=== PATIENT | male | born 2000 | race Caucasian/White ===

== ENCOUNTER 2022-12-06 11:29 | Inpatient (IN) | payer OTHER ==
[2022-12-06] MEDS ORDERED: Iopamidol 300 61% 100 ML VIAL FS ONE (13:16)
[2022-12-06] MEDS ORDERED: Ketorolac Tromethamine 30 MG/ML VIAL ONE (14:04)
[2022-12-06] MEDS ORDERED: Famotidine/PF 20 mg/2ml Vial ONE (14:04)
[2022-12-06] MEDS ORDERED: Ondansetron PF 4 MG/2 ML Vial ONE (14:04)
[2022-12-06 14:16] LABS: #Basophils 0.1 10x3/uL (0.0-0.2); #Eosinphils 0.1 10x3/uL (0.0-0.5); #Monocytes 0.7 10x3/uL (0.0-1.1); #Neutrophils 7.5 10x3/uL (1.5-8.4); %Basophils 0.7 % (0.0-2.0); %Eosinophils 0.8 % (0.0-6.0); %Lymphocytes 17.4 % (18.0-47.0); %Monocytes 6.5 % (0.0-10.0); %Neutrophils 74.2 % (40.0-75.0); Hematocrit 46.7 % (38.8-50.0); Hemoglobin 16.7 g/dL (13.5-17.5); Mean Corpuscular HGB CONC 35.8 g/dL (32.0-36.0); Mean Corpuscular Hemoglobin 29.8 pg (27.0-33.0); Mean Corpuscular Volume 83.2 fl (81.2-95.1); Mean Platelet Volume 12.9 fl (7.4-10.4); Platelet Count 273 10x3/uL (150-450); RBC Distribution Width 15.2 % (11.5-14.5); Red Blood Cell (RBC) Count 5.61 10x6/uL (4.32-5.72); White Blood Cell (WBC) Count 10.1 10x3/uL (3.5-10.5)
[2022-12-06 14:25] LABS: ALT (SGPT) 35 U/L (8-55); AST (SGOT) 20 U/L (5-34); Albumin 4.9 g/dL (3.5-5.0); Alkaline Phosphatase 78 U/L (40-110); Anion Gap 26 mmol/L (10-20); BUN (Urea Nitrogen) 6 mg/dL (8.9-20.6); CK (CPK) 111 U/L (30-200); Calc. Creatinine Clearance 0 mL/min (70-130); Calcium 9.8 mg/dL (7.8-10.44); Chloride 98 mmol/L (98-107); Estimated GFR 75; Globulin 4.2 g/dL (2.4-3.5); Lipase 19 U/L (8-78); Magnesium 2.1 mg/dL (1.6-2.6); Potassium 2.9 mmol/L (3.5-5.1); Protein, Total 9.1 g/dL (6.0-8.3); Sodium 130 mmol/L (136-145)
[2022-12-06 14:33] LABS: Carbon Dioxide 9 mmol/L (22-29); Glucose 505 mg/dL (70-105)
[2022-12-06 14:39] LABS: SARS-CoV-2 NAA Rapid Test DETECTED (NotDetected)
[2022-12-06] MEDS ORDERED: Potassium Chloride 20 MEQ/100 ML PREMIX BAG ONE (14:51)
[2022-12-06 15:25] LABS: Actual Bicarbonate (HCO3v) 9.9 mEq/L (22-28); Base Excess -17.4 mEq/L (-2 - +2); Calcium, Ionized (venous) 1.18 mmol/L (1.16-1.32); Chloride (VBG) 101 mmol/L (98-106); Hematocrit-VBG 49 % (42.0-52.0); Hemoglobin (Hb) 16.6 g/dL (13.2-17.3); Potassium (VBG) 3.08 mmol/L (3.70-5.30); Puncture Site Other Site; Sodium 136 mmol/L (133-146)
[2022-12-06 15:33] LABS: Phosphorus 2.5 mg/dL (2.3-4.7)
[2022-12-06] MEDS ORDERED: Potassium Chloride 20 MEQ TAB ONE (15:40)
[2022-12-06 15:56] LABS: Troponin I Less than 0.010 ng/mL (< 0.028)
[2022-12-06 16:04] LABS: Bilirubin Neg (Negative); Blood, Urine 25 (Negative); Glucose, Urine (Dipstick) >=1000 mg/dL (Negative); Ketone, Urine 150 mg/dL (Negative); Leukocyte Negative (Negative); Nitrite Negative (Negative); Protein, Urine (Dipstick) 30 mg/dl (Neg-Trace); Urobilinogen Normal mg/dL (Less than 2)
[2022-12-06 16:13] LABS: Bacteria/HPF None Seen HPF (None Seen); CAUTI Indications for Culture Dysuria,urgency,freq; Clarity Clear (Clear); RBC/HPF 0-3 HPF (0-3); Squamous Epithelial 0-3 HPF (0-3); WBC/HPF None Seen HPF (0-3)
[2022-12-06 16:14] LABS: Urine Culture Reflex No No
[2022-12-06] MEDS ORDERED: FLU VACC QS2023-24(6MOS UP)/PF 60 MCG/0.5 ML SYRINGE IM ONE (16:45)
[2022-12-06] MEDS ORDERED: Dextrose 50% Abboject 50 ML SYRINGE SLOW IVP PRN (17:13)
[2022-12-06] MEDS ORDERED: Ondansetron PF 4 MG/2 ML Vial IVP PRN (17:13)
[2022-12-06] MEDS ORDERED: Electrolyte Replacement Protocol 1 EACH IVPB SCH (17:13)
[2022-12-06] MEDS ORDERED: Ondansetron ODT 4 MG TAB PO PRN (17:13)
[2022-12-06] MEDS ORDERED: D5 1/2 NS w/20 mEq KCL 1,000 ML IV PRN (17:13)
[2022-12-06] MEDS ORDERED: Sodium Chloride 0.9% 1,000 ML IV PRN ×4 (17:13)
[2022-12-06] MEDS ORDERED: Dextrose 5 %-0.45 % NaCl 1,000 ML IV PRN (17:13)
[2022-12-06] MEDS ORDERED: NS 0.9% w/ 20 MEQ KCL 1,000 ML IV PRN (17:13)
[2022-12-06] MEDS ORDERED: Acetaminophen 325 MG TAB PO PRN (17:13)
[2022-12-06] MEDS ORDERED: hydrALAZINE 25 MG TAB PO PRN (17:17)
[2022-12-06 17:31] LABS: Anion Gap 23 mmol/L (10-20); BUN (Urea Nitrogen) 5 mg/dL (8.9-20.6); Calc. Creatinine Clearance 199 mL/min (70-130); Calcium 8.4 mg/dL (7.8-10.44); Carbon Dioxide 10 mmol/L (22-29); Chloride 106 mmol/L (98-107); Estimated GFR 96; Glucose 341 mg/dL (70-105); Potassium 2.9 mmol/L (3.5-5.1); Sodium 136 mmol/L (136-145)
[2022-12-06] MEDS ORDERED: Magnesium 2 GM/50 ML(in water) 2 GM in Premix Bag 1 BAG IVPB SCH (17:45)
[2022-12-06] MEDS: NS 0.9% w/ 20 MEQ KCL 1,000 ML IV PRN ×2 (17:52→19:57)
[2022-12-06] MEDS ORDERED: Potassium Phosphate 15 MMOL in Sodium Chloride 0.9% 250 ML 250 ML IVPB SCH (18:00)
[2022-12-06] MEDS: Potassium Chloride 20 MEQ in Premix Bag 1 BAG IVPB SCH ×2 (18:35→19:30)
[2022-12-06] MEDS ORDERED: Potassium Chloride 20 MEQ TAB PO SCH (19:00)
[2022-12-06 20:28] LABS: Anion Gap 22 mmol/L (10-20); BUN (Urea Nitrogen) 4 mg/dL (8.9-20.6); Calc. Creatinine Clearance 218 mL/min (70-130); Calcium 8.3 mg/dL (7.8-10.44); Chloride 107 mmol/L (98-107); Estimated GFR 107; Glucose 310 mg/dL (70-105); Potassium 3.3 mmol/L (3.5-5.1); Sodium 135 mmol/L (136-145)
[2022-12-06 20:34] LABS: Carbon Dioxide 9 mmol/L (22-29)
[2022-12-06] MEDS: Lactated Ringer's 1,000 ML IV SCH (20:54)
[2022-12-06] MEDS: INSULIN REGULAR IN 0.9 % NACL 100 UNITS in Premix Bag 1 BAG IVPB SCH (20:55)
[2022-12-06] MEDS ORDERED: Dextrose 5%-Lactated Ringers 1,000 ML IV SCH (21:00)
[2022-12-06 22:20] LABS: BUN (Urea Nitrogen) 4 mg/dL (8.9-20.6); Calc. Creatinine Clearance 232 mL/min (70-130); Calcium 8.1 mg/dL (7.8-10.44); Chloride 107 mmol/L (98-107); Estimated GFR 115; Glucose 286 mg/dL (70-105); Potassium 3.4 mmol/L (3.5-5.1); Sodium 134 mmol/L (136-145)
[2022-12-06 22:24] LABS: Carbon Dioxide Less than 8 mmol/L (22-29)
[2022-12-07 01:31] LABS: Actual Bicarbonate (HCO3v) 11.9 mEq/L (22-28); Anion Gap 16 mmol/L (10-20); BUN (Urea Nitrogen) Less than 4 mg/dL (8.9-20.6); Base Excess -11.7 mEq/L (-2 - +2); Calc. Creatinine Clearance 256 mL/min (70-130); Calcium 8.2 mg/dL (7.8-10.44); Calcium, Ionized (venous) 1.16 mmol/L (1.16-1.32); Carbon Dioxide 10 mmol/L (22-29); Chloride 112 mmol/L (98-107); Chloride (VBG) 110 mmol/L (98-106); Critical Notified By: CP.PH; Estimated GFR 125; Glucose 146 mg/dL (70-105); Hematocrit-VBG 41 % (42.0-52.0); Hemoglobin (Hb) 13.9 g/dL (13.2-17.3); Potassium 2.7 mmol/L (3.5-5.1); Potassium (VBG) 2.76 mmol/L (3.70-5.30); Puncture Site Other Site; Sodium 135 mmol/L (136-145); Sodium 136 mmol/L (133-146); pH (venous) 7.342 (7.32-7.43)
[2022-12-07] MEDS: Potassium Chloride 20 MEQ TAB PO SCH ×2 (01:33→04:08)
[2022-12-07] MEDS: D5 LR w/20 mEq KCL 1,000 ML IV SCH ×2 (02:12→06:59)
[2022-12-07] MEDS: INSULIN REGULAR IN 0.9 % NACL 100 UNITS in Premix Bag 1 BAG IVPB SCH (02:50)
[2022-12-07] MEDS: Lactated Ringer's 1,000 ML IV SCH (03:16)
[2022-12-07 04:41] LABS: #Basophils 0.1 10x3/uL (0.0-0.2); #Eosinphils 0.3 10x3/uL (0.0-0.5); #Monocytes 0.8 10x3/uL (0.0-1.1); #Neutrophils 4.1 10x3/uL (1.5-8.4); %Basophils 0.7 % (0.0-2.0); %Eosinophils 3.3 % (0.0-6.0); %Lymphocytes 31.3 % (18.0-47.0); %Neutrophils 53.6 % (40.0-75.0); Hematocrit 36.4 % (38.8-50.0); Mean Corpuscular HGB CONC 35.7 g/dL (32.0-36.0); Mean Corpuscular Hemoglobin 29.7 pg (27.0-33.0); Mean Corpuscular Volume 83.3 fl (81.2-95.1); Mean Platelet Volume 12.3 fl (7.4-10.4); Platelet Count 207 10x3/uL (150-450); RBC Distribution Width 15.3 % (11.5-14.5); Red Blood Cell (RBC) Count 4.37 10x6/uL (4.32-5.72); White Blood Cell (WBC) Count 7.6 10x3/uL (3.5-10.5)
[2022-12-07 04:45] LABS: Anion Gap 16 mmol/L (10-20); BUN (Urea Nitrogen) Less than 4 mg/dL (8.9-20.6); Calc. Creatinine Clearance 263 mL/min (70-130); Calcium 8.1 mg/dL (7.8-10.44); Carbon Dioxide 12 mmol/L (22-29); Chloride 109 mmol/L (98-107); Estimated GFR 126; Glucose 191 mg/dL (70-105); Potassium 2.8 mmol/L (3.5-5.1); Sodium 134 mmol/L (136-145)
[2022-12-07 04:49] LABS: Phosphorus 1.3 mg/dL (2.3-4.7)
[2022-12-07] MEDS ORDERED: Potassium Chloride 20 MEQ TAB PO SCH ×2 (05:30→06:15)
[2022-12-07] MEDS ORDERED: Potassium Phosphate 30 MMOL in Sodium Chloride 0.9% 250 ML 250 ML IVPB SCH (06:00)
[2022-12-07] MEDS ORDERED: Magnesium 2 GM/50 ML(in water) 2 GM in Premix Bag 1 BAG IVPB SCH (06:00)
[2022-12-07] MEDS ORDERED: PHOS-NAK 1 PKT PACK PO SCH (09:00)
[2022-12-07] MEDS ORDERED: Dextrose 5% in Water 1,000 ML IV PRN (09:18)
[2022-12-07] MEDS ORDERED: Glucagon 1 MG/ML KIT IM PRN (09:18)
[2022-12-07] MEDS ORDERED: Dextrose 50% Abboject 50 ML SYRINGE SLOW IVP PRN (09:18)
[2022-12-07] MEDS: Potassium Chloride 20 MEQ in Lactated Ringer's 1,000 ML IV SCH ×2 (09:40→20:32)
[2022-12-07] MEDS: Insulin NPH Human Isophane 100 UNITS/ML (10 ML VIAL) SC SCH ×2 (09:40→20:33)
[2022-12-07 10:39] VITALS: BMI 42.3
[2022-12-07] MEDS: HumaLOG 300 UNITS/3 ML VIAL SC PRN ×3 (11:28→20:35)
[2022-12-07] MEDS ORDERED: Potassium Phosphate 30 MMOL in Sodium Chloride 0.9% 500 ML IVPB SCH (12:00)
[2022-12-08 04:14] LABS: Anion Gap 16 mmol/L (10-20); BUN (Urea Nitrogen) Less than 4 mg/dL (8.9-20.6); Calc. Creatinine Clearance 324 mL/min (70-130); Carbon Dioxide 17 mmol/L (22-29); Chloride 101 mmol/L (98-107); Estimated GFR 132; Glucose 286 mg/dL (70-105); Sodium 131 mmol/L (136-145)
[2022-12-08 04:47] LABS: Potassium 2.6 mmol/L (3.5-5.1)
[2022-12-08] MEDS: Potassium Chloride 20 MEQ in Premix Bag 1 BAG IVPB SCH ×4 (05:28→14:35)
[2022-12-08] MEDS: HumaLOG 300 UNITS/3 ML VIAL SC PRN ×3 (05:29→16:27)
[2022-12-08] MEDS: Potassium Chloride 20 MEQ in Lactated Ringer's 1,000 ML IV SCH ×2 (06:12→15:32)
[2022-12-08] MEDS: Insulin NPH Human Isophane 100 UNITS/ML (10 ML VIAL) SC SCH ×2 (08:33→21:21)
[2022-12-08] MEDS: Sodium Bicarbonate Tab 325 MG TAB PO SCH ×2 (08:39→21:21)
[2022-12-08 23:17] LABS: Potassium 2.8 mmol/L (3.5-5.1)
[2022-12-09] MEDS: Potassium Chloride 20 MEQ TAB PO SCH ×4 (00:47→12:19)
[2022-12-09] MEDS: Potassium Chloride 20 MEQ in Lactated Ringer's 1,000 ML IV SCH ×3 (01:20→21:08)
[2022-12-09 04:42] LABS: Anion Gap 16 mmol/L (10-20); BUN (Urea Nitrogen) Less than 4 mg/dL (8.9-20.6); Calc. Creatinine Clearance 343 mL/min (70-130); Calcium 8.5 mg/dL (7.8-10.44); Carbon Dioxide 22 mmol/L (22-29); Chloride 101 mmol/L (98-107); Estimated GFR 135; Glucose 273 mg/dL (70-105); Potassium 2.8 mmol/L (3.5-5.1); Sodium 136 mmol/L (136-145)
[2022-12-09] MEDS: HumaLOG 300 UNITS/3 ML VIAL SC PRN ×4 (06:51→20:50)
[2022-12-09] MEDS: Insulin NPH Human Isophane 100 UNITS/ML (10 ML VIAL) SC SCH ×2 (10:56→20:51)
[2022-12-09 15:44] LABS: Anion Gap 18 mmol/L (10-20); BUN (Urea Nitrogen) 4 mg/dL (8.9-20.6); Calc. Creatinine Clearance 151 mL/min (70-130); Carbon Dioxide 21 mmol/L (22-29); Chloride 100 mmol/L (98-107); Estimated GFR 132; Glucose 333 mg/dL (70-105); Potassium 3.7 mmol/L (3.5-5.1); Sodium 135 mmol/L (136-145)
[2022-12-10 03:57] LABS: #Eosinphils 0.2 10x3/uL (0.0-0.5); #Monocytes 0.5 10x3/uL (0.0-1.1); #Neutrophils 2.3 10x3/uL (1.5-8.4); %Basophils 0.4 % (0.0-2.0); %Eosinophils 4.1 % (0.0-6.0); %Lymphocytes 40.9 % (18.0-47.0); %Monocytes 9.3 % (0.0-10.0); %Neutrophils 45.1 % (40.0-75.0); Hematocrit 36.9 % (38.8-50.0); Mean Corpuscular HGB CONC 35.2 g/dL (32.0-36.0); Mean Corpuscular Hemoglobin 30.1 pg (27.0-33.0); Mean Corpuscular Volume 85.4 fl (81.2-95.1); Mean Platelet Volume 12.2 fl (7.4-10.4); Platelet Count 166 10x3/uL (150-450); RBC Distribution Width 15.7 % (11.5-14.5); Red Blood Cell (RBC) Count 4.32 10x6/uL (4.32-5.72); White Blood Cell (WBC) Count 5.1 10x3/uL (3.5-10.5)
[2022-12-10 04:10] LABS: Anion Gap 14 mmol/L (10-20); BUN (Urea Nitrogen) 4 mg/dL (8.9-20.6); Calc. Creatinine Clearance 173 mL/min (70-130); Calcium 8.6 mg/dL (7.8-10.44); Carbon Dioxide 25 mmol/L (22-29); Chloride 100 mmol/L (98-107); Estimated GFR 138; Glucose 228 mg/dL (70-105); Magnesium 1.7 mg/dL (1.6-2.6); Potassium 2.9 mmol/L (3.5-5.1); Sodium 136 mmol/L (136-145)
[2022-12-10] MEDS: Potassium Chloride 20 MEQ TAB PO SCH ×4 (05:40→17:57)
[2022-12-10] MEDS: HumaLOG 300 UNITS/3 ML VIAL SC PRN ×2 (06:39→20:08)
[2022-12-10] MEDS: Potassium Chloride 20 MEQ in Lactated Ringer's 1,000 ML IV SCH ×2 (06:44→18:29)
[2022-12-10] MEDS ORDERED: Electrolyte Replacement Protocol FS PRN (06:45)
[2022-12-10] MEDS ORDERED: Magnesium 2 GM/50 ML(in water) 2 GM in Premix Bag 1 BAG IVPB SCH (08:00)
[2022-12-10] MEDS: Insulin NPH Human Isophane 100 UNITS/ML (10 ML VIAL) SC SCH ×2 (08:29→20:08)
[2022-12-11] MEDS: Potassium Chloride 20 MEQ in Lactated Ringer's 1,000 ML IV SCH (02:46)
[2022-12-11 03:59] LABS: #Eosinphils 0.2 10x3/uL (0.0-0.5); #Monocytes 0.5 10x3/uL (0.0-1.1); #Neutrophils 2.2 10x3/uL (1.5-8.4); %Basophils 0.6 % (0.0-2.0); %Eosinophils 4.1 % (0.0-6.0); %Lymphocytes 39.6 % (18.0-47.0); %Monocytes 10.2 % (0.0-10.0); %Neutrophils 45.3 % (40.0-75.0); Hematocrit 37.6 % (38.8-50.0); Hemoglobin 12.7 g/dL (13.5-17.5); Mean Corpuscular HGB CONC 33.8 g/dL (32.0-36.0); Mean Corpuscular Hemoglobin 29.1 pg (27.0-33.0); Mean Corpuscular Volume 86.2 fl (81.2-95.1); Mean Platelet Volume 12.4 fl (7.4-10.4); Platelet Count 179 10x3/uL (150-450); Red Blood Cell (RBC) Count 4.36 10x6/uL (4.32-5.72); White Blood Cell (WBC) Count 4.9 10x3/uL (3.5-10.5)
[2022-12-11 04:05] LABS: Phosphorus 4.1 mg/dL (2.3-4.7)
[2022-12-11 04:08] LABS: Anion Gap 16 mmol/L (10-20); BUN (Urea Nitrogen) 4 mg/dL (8.9-20.6); Calc. Creatinine Clearance 378 mL/min (70-130); Calcium 8.6 mg/dL (7.8-10.44); Carbon Dioxide 24 mmol/L (22-29); Chloride 99 mmol/L (98-107); Estimated GFR 137; Glucose 231 mg/dL (70-105); Magnesium 1.9 mg/dL (1.6-2.6); Potassium 3.5 mmol/L (3.5-5.1); Sodium 135 mmol/L (136-145)
[2022-12-11] MEDS: HumaLOG 300 UNITS/3 ML VIAL SC PRN (06:02)
[2022-12-11] MEDS ORDERED: Potassium Chloride 20 MEQ TAB PO SCH (08:00)
[2022-12-11] MEDS ORDERED: Magnesium 2 GM/50 ML(in water) 2 GM in Premix Bag 1 BAG IVPB SCH (08:00)
[2022-12-11] MEDS: Insulin NPH Human Isophane 100 UNITS/ML (10 ML VIAL) SC SCH (08:37)
[2022-12-11 14:41] VITALS: BP 132/65; TEMP 97.9
== END 2022-12-11 12:35 | disposition home or self-care (01) | DRG 637 ==
LOC: CSHERS 11:29 → CSHIMCU 15:43 → CSHTELE 12-07 12:36
PROVIDERS: ADMIT Internal Medicine; ATTEND Internal Medicine
PROC: 8E0ZXY6 Isolation (ICD-10-PCS; principal; 2022-12-06)
DX: E11.10 Type 2 diabetes mellitus with ketoacidosis without coma (principal); U07.1 COVID-19; Z68.41 Body mass index [BMI] 40.0-44.9, adult; R03.0 Elevated blood-pressure reading, without diagnosis of hypertension; E66.01 Morbid (severe) obesity due to excess calories; E87.6 Hypokalemia; E83.42 Hypomagnesemia; Z87.891 Personal history of nicotine dependence
CPT/HCPCS: 36415; 36416; 71045; 74177; 80048; 80053; 81001; 82010; 82550; 82805; 83690; 83735; 84100; 84484; 85025; 93005; 96374; 96375; J1650; J1815; J1885; J2405; J3475; J3480; J7030; J7050; J7120; J7999; Q9967; S0028